=== PATIENT | female | born 1980 ===

== ENCOUNTER 2023-10-10 01:43 | Day surgery (SDC) | payer OTHER, SELFPAY ==
[2023-09-27 14:14] VITALS: BMI 29.0
--- NOTE | 2023-09-27 14:26 | PC.NURSE ---
Report to the Outpatient Waiting Room, entrance under the green pavilion located off [facility], at time _7:30 AM on date _Tuesday10/10/23 . Planned Procedure Time: _9:30AM . Time changes happen often and if your time is changed the preop area will call you the afternoon before. - You and your 2 visitors will be asked to self-screen and do not enter if you have any COVID symptoms. - A mask is optional within the hospital at this time. Patients may have clear liquids (water, carbonated beverages, clear teas, apple juice) until 3 hours prior to surgery (6:30AM) with a maximum of 20 ounces. - No food from midnight until time of surgery Take the following medications with a SIP of water the morning of surgery: __NONE DO NOT STOP ANY OF YOUR OTHER PRESCRIPTION MEDICATIONS PRIOR TO SURGERY ?EXCEPT THE FOLLOWING Medications to discontinue per physician MULTIVITAMIN Date to take last dose___10/07/23 Please no make-up, nail croatian, hairspray, perfume, deodorant, or body powder the day of surgery. No jewelry (including any body piercings) or valuables the day of surgery, leave them at home. Please take a shower or bath the night before, or the morning of, surgery with an antibacterial soap. Wear comfortable, loose fitting clothing. - Jewelry must be removed prior to entering the operating room. Rings and piercings that are not removed may be cut off. - The hospital will not accept responsibility for valuables. - Please leave all valuables, including medications, at home the day of surgery. If you are going home after surgery, a licensed driver courier must drive you home. - NO public transportation without another adult if you receive anesthesia. - We recommend that an adult stay with you for 24 hours following discharge. - We also recommend that you do not drive, make important decision, drink alcoholic beverages, or take any drugs that were not prescribed by your health care provider for at least 24 hours after your discharge time. Follow any additional instructions given to you from your surgeon. If you or anyone in your household have experienced Covid symptoms in the past week, please notify your surgeon or the nurse liaison at the phone number below for possible testing. Telephone instructions given to _BASSAM___and asked if any additional questions and then verbalized understanding. Patient advised to call surgeon office or pre surgery nurse liaison [phone] if any additional questions.
[2023-10-10] VITALS (12 sets, daily range): BP systolic 106–127; BP diastolic 64–77; PULSE 76–88; RESP 12–20; TEMP 36.3–36.7; O2SAT 95–100
--- NOTE | 2023-10-10 07:35 | WPDHPUPDATE1 ---
History and Physical Update Update Date/Time: 10/10/23 07:35 History and Physical has been reviewed, including an updated exam of the patient. There are NO changes in the patient's condition. Risks, benefits, and alternatives have been discussed and questions answered. Patient agrees to proceed with procedure.
[2023-10-10] MEDS: LACTATED RINGERS 1,000 ML 30 ML IV CONT ×3 (08:17→12:47)
[2023-10-10] MEDS: ACETAMINOPHEN 500 MG TABLET 1000 MG PO (08:28)
[2023-10-10] MEDS: KETOROLAC 15 MG/ML VIAL (*BKC) IV PUSH (08:29)
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
[2023-10-10] MEDS: ceFAZolin 2 GM/D5W 50 ML 2 GM/50 ML BAG IVPB (09:11)
[2023-10-10] MEDS: BUPIVACAINE/EPINEPHRINE 0.5% 30 ML VIAL INFILTRATE (09:58)
--- NOTE | 2023-10-10 10:36 | W.PM.PROC2 ---
Procedure Note - Detailed Date of Procedure 10/10/23 Pre-op Diagnosis incarcerated incisional hernia Post-op Diagnosis Same Procedure Performed Robotic assisted repair incarcerated incisional hernia with mesh, defect measuring 3 cm Surgeon Melvina Paiz MD Anesthesia General Indications 43 year-old female presenting with incarcerated incisional hernia Findings incarcerated periumbilical incisional hernia measuring approximately 3 cm Description of Procedure The patient was taken the operating room placed in the supine position. After adequate induction of general anesthesia, the patient was prepped and draped in normal sterile fashion. A time-out was then done to verify the patient's identity as well as the procedure being performed. I began by making a 8 mm incision in the left upper quadrant. Through this, a Veress needle was placed into the peritoneal cavity and CO2 gas was insufflated. After adequate pneumoperitoneum was achieved, a 8 mm trocar was placed through this incision. I then placed the laparoscope through this trocar site and under direct visualization I placed a 8 mm port in the left mid abdomen as well as an additional 8 mm port in the left lower abdomen. The robot was then docked to the 3 port sites. I then went to the robotic console. I began by identifying the hernia. A moderate-sized incarcerated hernia was noted in the periumbilical region. Using graspers, I was able to reduce this hernia. The hernia was noted to contain a large amount of preperitoneal fat and omentum. Once reduced, I also reduced and dissected out the hernia sac. I then closed the approximately 3 cm defect with 0 strata fix suture. I then placed a 10 x [address] mesh into the abdominal cavity. The positional stitch was placed in the middle of the mesh and brought up centering the mesh over the defect. Once this was done, I used 2 0 V lock suture x 2 to circumferentially suture the mesh to the abdominal wall. Once the mesh was completely sutured in, I was happy with our tension-free repair. The mesh was noted to have good overlap of the defect. At this point, the robot was undocked and all ports were removed. All port sites were then closed with 4 O Monocryl subcuticular suture. The patient tolerated the procedure well, is extubated in the operating room postoperative, and transferred to the recovery room in stable condition. Implants 10 x [address] mesh Estimated Blood Loss 10 Drains No Packing No Pathology None sent Complications No immediate complications Condition Stable Disposition PACU [facility] Billing Surgery - Charge Forward: Surgery Billing
[2023-10-10] MEDS: fentaNYL CITRATE INJ (*CRX) 100 MCG/2 ML VIAL 25 MCG IV PUSH ×4 (11:14→12:26)
[2023-10-10] MEDS: ONDANSETRON INJ 4 MG/2 ML VIAL IV PUSH (11:43)
[2023-10-10] MEDS: diphenhydrAMINE HCl INJ 50 MG/ML VIAL 12.5 MG IV PUSH (12:43)
== END 2023-10-10 13:45 | disposition home or self-care (01) ==
PROVIDERS: PCP Internal Medicine; Visit Provider Surgery
PROC: (CPT 49592; principal; 2023-10-10 09:30)
DX: K43.0 Incisional hernia with obstruction, without gangrene (principal); E78.5 Hyperlipidemia, unspecified; Z90.49 Acquired absence of other specified parts of digestive tract
CPT/HCPCS: 49592; S2900; 36415; 86850; 86900; 86901; A9270; C1781; J0690; J1100; J1200; J1885; J2250; J2405; J2704; J3010; J7120